=== PATIENT | female | born 1940 | race Caucasian/White ===

== ENCOUNTER 2017-07-26 08:50 | Day surgery (SDC) | payer MEDICARE, BC ==
[~2017-07-26] VITALS: Ht 152.4 cm; Wt 50.8 kg
[~2017-07-26 08:50] MED LIST: ALENDRONATE70 MG OR; AMLODIPINE BESYL5 MG PO; AMOXICILLIN500 MG PO; ASPIRIN ADULT L81 MG PO; ATORVASTATIN CA40 MG PO; CALCIUM +D OR; CIPROFLOXACN500 MG PO; COLACE100 MG OR; ENALAPRIL10 MG OR; FLUARIX QUADRIV1 INJ IM; FLUZONE SPLT1 M1 IM; HYDROCHLOROT12.5 MG OR; HYDROCHLOROT12.5 MG PO; LEVOTHYROXIN50 MC1 PO; LISINOP/HCTZ1 TA1 PO; PROAIR HFA IN; VITAMIN B CO PO; VITAMIN D1000 UNIT PO
[2017-07-26] MEDS ORDERED: ASPIRIN ADULT L81 MG PO (11:08)
[2017-07-26 11:20] VITALS: BP 150/67
== END 2017-07-26 11:45 | disposition home or self-care (01) ==
LOC: ENDO 08:50
PROVIDERS: ATTEND Surgery
PROC: 0DJD8ZZ Inspection of Lower Intestinal Tract, Via Natural or Artificial Opening Endoscopic (ICD-10-PCS; principal; 2017-07-26)
DX: Z12.11 Encounter for screening for malignant neoplasm of colon (principal); K64.4 Residual hemorrhoidal skin tags; K63.89 Other specified diseases of intestine; K57.30 Diverticulosis of large intestine without perforation or abscess without bleeding; I10 Essential (primary) hypertension; E78.5 Hyperlipidemia, unspecified
CPT/HCPCS: G0121